=== PATIENT | female | born 1965 | race Hispanic/Latino ===

== ENCOUNTER 2020-10-02 08:53 | Emergency (ER) | payer MEDICARE ==
[2020-10-02] MEDS ORDERED: ONDANSETRON 4 MG/2 ML INJ IV ONE (10:42)
[2020-10-02] MEDS ORDERED: SODIUM CHLORIDE 0.9% 1000 ML 1,000 ML IV ONE (10:42)
[2020-10-02] MEDS ORDERED: MORPHINE 4 MG/1 ML INJ IV ONE (10:42)
[2020-10-02 10:58] LABS: Bacteria,Urine 1+ /HPF (Negative); Bilirubin,Urine NEG (Negative); Blood,Urine LG (Negative); Color,Urine Yellow (Yellow); Mucus,Urine FEW /HPF; Urobilinogen,Urine < 2.0 mg/dL (<2.0)
[2020-10-02 10:59] LABS: RBC,Urine > 182.0 /HPF (0.0-6.0)
[2020-10-02 11:23] LABS: Basophils % (Auto) 0.6 % (0.0-1.8); Eosinophils # (Auto) 0.2 K/mm3 (0.0-0.4); Eosinophils % (Auto) 2.9 % (0.0-4.3); Hematocrit 33.4 % (30.3-42.9); Hemoglobin 11.7 gm/dl (10.1-14.3); Lymphocytes # (Auto) 1.7 K/mm3 (1.2-5.4); Lymphocytes % (Auto) 21.5 % (13.4-35.0); Mean Corpuscular HGB Conc 35 % (30-34); Mean Corpuscular Volume 88 fl (79-97); Monocytes # (Auto) 0.6 K/mm3 (0.0-0.8); Monocytes % (Auto) 7.7 % (0.0-7.3); Platelet Count 338 K/mm3 (140-440); Red Blood Count 3.81 M/mm3 (3.65-5.03); Red Cell Distribution Width 14.9 % (13.2-15.2)
--- NOTE | 2020-10-02 11:30 | Emergency Department Report ---
ED General Adult HPI - General Chief complaint: Urogenital-Female Stated complaint: BLOON IN URINE Time Seen by Provider: 10/02/20 10:18 Source: patient Mode of arrival: Wheelchair Limitations: No Limitations - History of Present Illness Initial comments: Patient is a 55-year-old female presents emergency room with complaints of back pain and lower abdominal pain that began this morning. She states that she also has hematuria. Patient states that she has a history of nephrolithiasis and had a ureteral stent placed on September 02 at [facility]. She states that she is also been having associated nausea. She denies any fever, vomiting, diarrhea, CP, SOB. She has a past medical history of CAD, A. fib, COPD. She states that she is on Plavix. She has multiple medication allergies. Severity scale (0 -10): 10 - Related Data Home Medications Medication Instructions Recorded Confirmed Last Taken Albuterol Sulfate [Proventil Hfa] 1 - 2 puff INHALATION Q6H PRN 05/08/20 Unknown AtorvaSTATin [Lipitor] 40 mg PO DAILY 05/08/20 05/08/20 Unknown Clopidogrel [Plavix] 75 mg PO DAILY 05/08/20 05/08/20 Unknown DULoxetine [Cymbalta] 60 mg PO DAILY 05/08/20 05/08/20 Unknown Furosemide [Lasix TAB] 20 mg pe PO DAILY 05/08/20 05/08/20 Unknown ISOSORBIDE MONOnitrate [Imdur ER] 30 mg PO DAILY 05/08/20 05/08/20 Unknown LORazepam [Lorazepam] 0.5 mg PO BID PRN 05/08/20 05/08/20 Unknown Montelukast Sodium 10 mg PO DAILY 05/08/20 05/08/20 Unknown Omeprazole 20 mg PO DAILY 05/08/20 05/08/20 Unknown amLODIPine 5 mg PO DAILY 05/08/20 05/08/20 Unknown lisinopriL [Zestril TAB] 20 mg PO DAILY 05/08/20 05/08/20 Unknown metFORMIN [Glucophage] 500 mg PO BID 05/08/20 05/08/20 Unknown traZODone [Desyrel] 100 mg PO QHS 05/08/20 05/08/20 Unknown Previous Rx's Medication Instructions Recorded Last Taken Type Melatonin [Melatonin 5MG TAB] 5 mg PO QHS PRN #30 tablet 05/12/20 Unknown Rx Nicotine [Habitrol] 14 mg TD QDAY #30 patch 05/12/20 Unknown Rx haloperidoL [Haldol] 2 mg PO BID #60 tablet 05/12/20 Unknown Rx Ciprofloxacin HCl [Ciprofloxacin 500 mg PO BID 7 Days #14 tab 10/02/20 Unknown Rx TAB] Docusate Sodium [Colace] 100 mg PO BID PRN #14 capsule 10/02/20 Unknown Rx Ketorolac [Toradol] 10 mg PO Q6H PRN #10 tablet 10/02/20 Unknown Rx Polyethylene Glycol 3350 [Miralax] 7 gm PO DAILY #1 powder 10/02/20 Unknown Rx Promethazine [Phenergan] 25 mg PO Q8HR PRN #7 tab 10/02/20 Unknown Rx Allergies Allergy/AdvReac Type Severity Reaction Status Date / Time ampicillin Allergy Itching Verified 05/08/20 02:47 azithromycin Allergy Nausea Verified 05/08/20 02:47 codeine Allergy Itching Verified 05/08/20 02:47 erythromycin base Allergy Vomiting Verified 05/08/20 02:47 latex Allergy Rash Verified 05/08/20 02:47 Penicillins Allergy Vomiting Verified 05/08/20 02:47 hydrocodone AdvReac Unknown Verified 05/08/20 02:47 tramadol AdvReac Unknown Verified 05/08/20 02:47 ED Review of Systems ROS: Stated complaint: BLOON IN URINE Other details as noted in HPI Comment: All other systems reviewed and negative ED Past Medical Hx - Past Medical History Previous Medical History?: Yes Hx Congestive Heart Failure: Yes Hx Diabetes: Yes Hx Arthritis: Yes Hx Seizures: Yes (8 mths) Hx Asthma: No Hx COPD: Yes - Social History Smoking Status: Current Every Day Smoker Substance Use Type: Alcohol - Medications Home Medications: Home Medications Medication Instructions Recorded Confirmed Last Taken Type Albuterol Sulfate [Proventil Hfa] 1 - 2 puff INHALATION Q6H PRN 05/08/20 05/08/20 Unknown History AtorvaSTATin [Lipitor] 40 mg PO DAILY 05/08/20 05/08/20 Unknown History Clopidogrel [Plavix] 75 mg PO DAILY 05/08/20 05/08/20 Unknown History DULoxetine [Cymbalta] 60 mg PO DAILY 05/08/20 05/08/20 Unknown History Furosemide [Lasix TAB] 20 mg pe PO DAILY 05/08/20 05/08/20 Unknown History ISOSORBIDE MONOnitrate [Imdur ER] 30 mg PO DAILY 05/08/20 05/08/20 Unknown History LORazepam [Lorazepam] 0.5 mg PO BID PRN 05/08/20 05/08/20 Unknown History Montelukast Sodium 10 mg PO DAILY 05/08/20 05/08/20 Unknown History Omeprazole 20 mg PO DAILY 05/08/20 05/08/20 Unknown History amLODIPine 5 mg PO DAILY 05/08/20 05/08/20 Unknown History lisinopriL [Zestril TAB] 20 mg PO DAILY 05/08/20 05/08/20 Unknown History metFORMIN [Glucophage] 500 mg PO BID 05/08/20 05/08/20 Unknown History traZODone [Desyrel] 100 mg PO QHS 05/08/20 05/08/20 Unknown History Melatonin [Melatonin 5MG TAB] 5 mg PO QHS PRN #30 tablet 05/12/20 Unknown Rx Nicotine [Habitrol] 14 mg TD QDAY #30 patch 05/12/20 Unknown Rx haloperidoL [Haldol] 2 mg PO BID #60 tablet 05/12/20 Unknown Rx Ciprofloxacin HCl [Ciprofloxacin 500 mg PO BID 7 Days #14 tab 10/02/20 Unknown Rx TAB] Docusate Sodium [Colace] 100 mg PO BID PRN #14 capsule 10/02/20 Unknown Rx Ketorolac [Toradol] 10 mg PO Q6H PRN #10 tablet 10/02/20 Unknown Rx Polyethylene Glycol 3350 [Miralax] 7 gm PO DAILY #1 powder 10/02/20 Unknown Rx Promethazine [Phenergan] 25 mg PO Q8HR PRN #7 tab 10/02/20 Unknown Rx ED Physical Exam - General Limitations: No Limitations General appearance: alert, in no apparent distress - Head Head exam: Present: atraumatic, normocephalic - Eye Eye exam: Present: normal appearance - ENT ENT exam: Present: mucous membranes moist - Respiratory Respiratory exam: Present: normal lung sounds bilaterally. Absent: respiratory distress, wheezes, rales, rhonchi, stridor, chest wall tenderness, accessory muscle use, decreased breath sounds, prolonged expiratory - Cardiovascular Cardiovascular Exam: Present: regular rate, normal rhythm, normal heart sounds. Absent: systolic murmur, diastolic murmur, rubs, gallop - GI/Abdominal GI/Abdominal exam: Present: soft, normal bowel sounds. Absent: distended, tenderness, guarding, rebound, rigid - Back Exam Back exam: Present: CVA tenderness (R), CVA tenderness (L) - Neurological Exam Neurological exam: Present: alert, oriented X3 - Psychiatric Psychiatric exam: Present: normal affect, normal mood - Skin Skin exam: Present: warm, dry, intact ED Course Vital Signs 10/02/20 10/02/20 10/02/20 08:56 11:36 13:18 Temperature 98.2 F 97.9 F Pulse Rate 94 H 78 Respiratory 18 18 18 Rate Blood Pressure 140/62 148/80 [Right] O2 Sat by Pulse 96 100 Oximetry ED Medical Decision Making - Lab Data Result diagrams: 10/02/20 11:04 10/02/20 11:04 Lab Results 10/02/20 10/02/20 10/02/20 Range/Units 11:04 11:04 Unknown WBC 8.0 (4.5-11.0) K/mm3 RBC 3.81 (3.65-5.03) M/mm3 Hgb 11.7 (10.1-14.3) gm/dl Hct 33.4 (30.3-42.9) % MCV 88 (79-97) fl MCH 31 (28-32) pg MCHC 35 H (30-34) % RDW 14.9 (13.2-15.2) % Plt Count 338 (140-440) K/mm3 Lymph % (Auto) 21.5 (13.4-35.0) % [place] % (Auto) 7.7 H (0.0-7.3) % Eos % (Auto) 2.9 (0.0-4.3) % Baso % (Auto) 0.6 (0.0-1.8) % Lymph # (Auto) 1.7 (1.2-5.4) K/mm3 Nance # (Auto) 0.6 (0.0-0.8) K/mm3 Eos # (Auto) 0.2 (0.0-0.4) K/mm3 Baso # (Auto) 0.0 (0.0-0.1) K/mm3 Seg Neutrophils % 67.3 (40.0-70.0) % Seg Neutrophils # 5.4 (1.8-7.7) K/mm3 Sodium 140 (137-145) mmol/L Potassium 4.2 (3.6-5.0) mmol/L Chloride 104.8 (98-107) mmol/L Carbon Dioxide 27 (22-30) mmol/L Anion Gap 12 mmol/L BUN 14 (7-17) mg/dL Creatinine 0.8 (0.6-1.2) mg/dL Estimated GFR > 60 ml/min BUN/Creatinine Ratio 18 % Glucose 111 H (65-100) mg/dL Calcium 9.1 (8.4-10.2) mg/dL Total Bilirubin 0.30 (0.1-1.2) mg/dL AST 17 (5-40) units/L ALT 19 (7-56) units/L Alkaline Phosphatase 29 L (35-129) units/L Total Protein 6.5 (6.3-8.2) g/dL Albumin 3.9 (3.9-5) g/dL Albumin/Globulin Ratio 1.5 % Lipase 35 (13-60) units/L Urine Color Yellow (Yellow) Urine Turbidity Slightly-cloudy (Clear) Urine pH 5.0 (5.0-7.0) Ur Specific [place] 1.015 (1.003-1.030) Urine Protein 100 mg/dl (Negative) mg/dL Urine Glucose (UA) Neg (Negative) mg/dL Urine Ketones Neg (Negative) mg/dL Urine Blood Lg (Negative) Urine Nitrite Neg (Negative) Urine Bilirubin Neg (Negative) Urine Urobilinogen < 2.0 (<2.0) mg/dL Ur Leukocyte Esterase Tr (Negative) Urine WBC (Auto) 10.0 H (0.0-6.0) /HPF Urine RBC (Auto) > 182.0 (0.0-6.0) /HPF U Epithel Cells (Auto) < 1.0 (0-13.0) /HPF Urine Bacteria (Auto) 1+ (Negative) /HPF Urine Mucus Few /HPF - Radiology Data Radiology results: report reviewed Reporting MD: Migel Mendez Dictation Time: October 02, 2020 10:07 Cost Control Specialist: Not available Student Development Dean Date: CT abdomen pelvis wo con INDICATION: flank pain, hematuria, ureteral stent 09/02/2020. TECHNIQUE: All CT scans at this location are performed using CT dose reduction for ALARA by means of automated exposure control. COMPARISON: None available. FINDINGS: Lung bases are clear of acute disease. Endovascular graft in the distal thoracic aorta. Cholecystectomy. Small hiatal hernia. Liver, spleen and pancreas are negative on this noncontrast exam. Right kidney and both adrenals are negative. Left ureteral stent is in position, with the pigtail in the renal pelvis. No hydronephrosis. Abdominal aorta is normal in size. There are several small left para-aortic nodes, measuring up to 7 mm in size. Pelvis Distal end of the left ureteral stent is normally positioned in the urinary bladder. Bladder and distal right ureter are unremarkable. Uterus appears unremarkable. Normal appendix. Sigmoid diverticulosis but no free fluid or inflammation. No significant skeletal lesions. IMPRESSION: 1. Left ureteral stent in position, with no hydronephrosis. 2. Very small left para-aortic nodes, of questionable significance. Signer Name: Migel Mendez MD Signed: 10/02/2020 10:07 AM Workstation Name: [email or web address] [id number] - Medical Decision Making Patient is a 55-year-old female presents emergency room with complaints of back pain and lower abdominal pain that began this morning. She states that she also has hematuria. Patient states that she has a history of nephrolithiasis and had a ureteral stent placed on September 02 at [facility]. She states that she is also been having associated nausea. She denies any fever, vomiting, diarrhea, CP, SOB. She has a past medical history of CAD, A. fib, COPD. She states that she is on Plavix. She has multiple medication allergies. VSS. Patient has bilateral CVA tenderness, no abdominal tenderness on exam, no guarding, no rebound, no rigidity, no peritoneal signs, normal bowel sounds. Labs are normal. UA shows evidence of red blood cells, there is a small amount of white blood cells and trace leukocyte esterase, will cover patient for UTI. CT abd pelvis without contrast: 1. Left ureteral stent in position, with no hydronephrosis. 2. Very small left para-aortic nodes, of questionable significance. Discussed all findings with patient patient given her CT report. Discussed the importance of urology follow-up with patient. Patient states that she is also been having some constipation but has no vomiting and is still passing gas. Patient given prescription for MiraLAX, Colace, ciprofloxacin, Phenergan, Toradol. advised pt Please take medication as prescribed. Increase your water intake. Follow-up with your primary care doctor. Follow-up with urologist. Return to emergency room for any new or worsening symptoms. Critical care attestation.: If time is entered above; I have spent that time in minutes in the direct care of this critically ill patient, excluding procedure time. ED Disposition Clinical Impression: S/P ureteral stent placement Back pain Qualifiers: Back pain location: low back pain Chronicity: acute Back pain laterality: bilateral Sciatica presence: without sciatica Qualified Code(s): M54.5 - Low back pain Hematuria Qualifiers: Hematuria type: unspecified type Qualified Code(s): R31.9 - Hematuria, unspecified UTI (urinary tract infection) Qualifiers: Urinary tract infection type: acute cystitis Hematuria presence: with hematuria Qualified Code(s): N30.01 - Acute cystitis with hematuria Disposition: TO HOME OR SELFCARE Is pt being admited?: No Does the pt Need Aspirin: No Condition: Stable Instructions: Urinary Tract Infection, Adult, Azcg-[id number], Hematuria, Adult Additional Instructions: Please take medication as prescribed. Increase your water intake. Follow-up with your primary care doctor. Follow-up with urologist. Return to emergency room for any new or worsening symptoms. Prescriptions: Ciprofloxacin HCl [Ciprofloxacin TAB] 500 mg PO BID 7 Days #14 tab Docusate Sodium [Colace] 100 mg PO BID PRN #14 capsule PRN Reason: constipation Polyethylene Glycol 3350 [Miralax] 7 gm PO DAILY #1 powder Promethazine [Phenergan] 25 mg PO Q8HR PRN #7 tab PRN Reason: Nausea Ketorolac [Toradol] 10 mg PO Q6H PRN #10 tablet PRN Reason: Pain Referrals: PRIMARY CARE,MD [Primary Care Provider] - 2-3 Days your, urologist [Other] - 2-3 Days Time of Disposition: 12:44 Print Language: BENGALI
[2020-10-02] MEDS ORDERED: diphenhydrAMINE 50 MG/ML VIAL IV ONE (11:35)
[2020-10-02 11:36] LABS: Alanine Aminotransferase 19 units/L (7-56); Albumin 3.9 g/dL (3.9-5); BUN/Creatinine Ratio 18; Blood Urea Nitrogen 14 mg/dL (7-17); Calcium 9.1 mg/dL (8.4-10.2); Hemolysis Index 4
[2020-10-02 13:19] VITALS: BP 148/80
--- NOTE | 2020-10-09 15:02 | Cat Scan Report ---
CT abdomen pelvis wo con INDICATION: flank pain, hematuria, ureteral stent 09/02/2020. TECHNIQUE: All CT scans at this location are performed using CT dose reduction for ALARA by means of automated e xposure control. COMPARISON: None available. FINDINGS: Lung bases are clear of acute disease. Endovascular graft in the distal thoracic aorta. Cholecystectomy. Small hiatal hernia. Liver, spleen and pancreas are negative on this noncontrast exa m. Right kidney and both adrenals are negative. Left ureteral stent is in position, with the pigtail in the renal pelvis. No hydronephrosis. Abdominal aorta is normal in size. There are several small left para-aortic nodes, measuring up to 7 mm in size. Pelvis Distal end of the left ureteral stent is normally positioned in the urinary bladder. Bladder and dist al right ureter are unremarkable. Uterus appears unremarkable. Normal appendix. Sigmoid diverticulosi s but no free fluid or inflammation. No significant skeletal lesions. IMPRESSION: 1. Left ureteral stent in position, with no hydronephrosis. 2. Very small left para-aortic nodes, of questionable significance. Signer Name: Migel Mendez MD Signed: 10/02/2020 11:07 AM Workstation Name: [id number]
== END 2020-10-02 13:20 | disposition home or self-care (01) ==
LOC: ED 08:53
DX: N39.0 Urinary tract infection, site not specified (principal); R31.9 Hematuria, unspecified; M54.6 Pain in thoracic spine; I50.9 Heart failure, unspecified; E11.9 Type 2 diabetes mellitus without complications; M19.91 Primary osteoarthritis, unspecified site; R56.9 Unspecified convulsions; J44.9 Chronic obstructive pulmonary disease, unspecified; F17.200 Nicotine dependence, unspecified, uncomplicated; Z79.84 Long term (current) use of oral hypoglycemic drugs; Z79.899 Other long term (current) drug therapy; Z88.1 Allergy status to other antibiotic agents; Z88.8 Allergy status to other drugs, medicaments and biological substances; Z91.040 Latex allergy status; Z98.890 Other specified postprocedural states
CPT/HCPCS: 36415; 74176; 80053; 81001; 83690; 85025; 87086; 96361; 96374; 96375; 99284; J1200; J2270; J2405; J7030

== ENCOUNTER 2020-10-03 19:29 | Emergency (ER) | payer MEDICARE ==
[2020-10-03 20:35] LABS: Bilirubin,Urine NEG (Negative); Blood,Urine LG (Negative); Color,Urine Yellow (Yellow); Urobilinogen,Urine < 2.0 mg/dL (<2.0)
[2020-10-03 20:37] LABS: RBC,Urine > 182.0 /HPF (0.0-6.0)
[2020-10-03 21:19] LABS: Hematocrit 34.7 % (30.3-42.9); Hemoglobin 11.6 gm/dl (10.1-14.3); Mean Corpuscular HGB Conc 33 % (30-34); Mean Corpuscular Volume 89 fl (79-97); Platelet Count 350 K/mm3 (140-440); Red Blood Count 3.89 M/mm3 (3.65-5.03); Red Cell Distribution Width 14.9 % (13.2-15.2)
[2020-10-03 21:20] LABS: Basophils % (Auto) 0.7 % (0.0-1.8); Eosinophils # (Auto) 0.2 K/mm3 (0.0-0.4); Eosinophils % (Auto) 2.4 % (0.0-4.3); Lymphocytes # (Auto) 1.7 K/mm3 (1.2-5.4); Lymphocytes % (Auto) 18.5 % (13.4-35.0); Monocytes # (Auto) 0.7 K/mm3 (0.0-0.8)
[2020-10-03 21:21] LABS: Basophils # (Auto) 0.1 K/mm3 (0.0-0.1)
[2020-10-03 21:23] LABS: Alanine Aminotransferase 20 units/L (7-56); Albumin 4.2 g/dL (3.9-5); BUN/Creatinine Ratio 19; Blood Urea Nitrogen 17 mg/dL (7-17); Calcium 9.4 mg/dL (8.4-10.2); Hemolysis Index 69
[2020-10-03] MEDS ORDERED: TAMSULOSIN 0.4 MG CAP PO ONE (21:43)
[2020-10-03] MEDS ORDERED: KETOROLAC 30 MG/1 ML INJ IV ONE (21:43)
[2020-10-03] MEDS ORDERED: METOCLOPRAMIDE 10 MG/2 ML INJ IV ONE ×2 (21:43→23:33)
[2020-10-03] MEDS ORDERED: SODIUM CHLORIDE 0.9% 1000 ML 1,000 ML IV ONE (21:43)
[2020-10-03] MEDS ORDERED: diphenhydrAMINE 50 MG/ML VIAL IV ONE (21:43)
--- NOTE | 2020-10-03 22:59 | Cat Scan Report ---
CT ABDOMEN AND PELVIS WITHOUT CONTRAST INDICATION / CLINICAL INFORMATION: RENAL STONE PROTOCOL!!! Bilateral flank pain. TECHNIQUE: Axial CT images were obtained through the abdomen and pelvis without IV contrast. All CT scans at [facility] location are performed using CT dose reduction for ALARA by means of automated exposure control. COMPARISON: CT abdomen pelvis 10/02/2020 FINDINGS: LOWER CHEST: Multivessel coronary artery atherosclerotic calcification. Partially visualized in the v ascular graft repair of the thoracic aorta. HEPATOBILIARY: No significant abnormality. PANCREAS: No significant abnormality. SPLEEN: No significant abnormality. ADRENALS: No significant abnormality. GENITOURINARY: Double-J ureteral stent in place on the left with stable appearance. No nephrolithiasi s. No evidence of obstructive uropathy. Bladder demonstrates no significant abnormality. GASTROINTESTINAL/MESENTERY: Diverticulosis coli without evidence of diverticulitis. No evidence of ac [place] appendicitis. No bowel obstruction or inflammation. No free air or significant free fluid. RETROPERITONEUM: Stable normal sized retroperitoneal lymph nodes. No evidence of significant adenopat hy. REPRODUCTIVE ORGANS: No significant abnormality. VASCULAR: Moderate atherosclerotic calcification without acute abnormality. SKELETAL SYSTEM: No significant abnormality. ADDITIONAL FINDINGS: No significant abnormality. IMPRESSION: 1. Stable appearance of the left-sided double-J ureteral stent without evidence of obstructive uropat hy. No nephrolithiasis in either kidney. 2. Additional stable findings as above. Signer Name: Anrdew Bazan MD Signed: 10/03/2020 10:54 PM Workstation Name: [id number]
[2020-10-03] MEDS ORDERED: dexAMETHasone 20 MG/5 ML VIAL IV ONE (23:32)
[2020-10-03] MEDS ORDERED: oxyCODONE /ACETAMINOPHEN 5-325MG TAB PO ONE (23:32)
--- NOTE | 2020-10-03 23:52 | Emergency Department Report ---
ED General Adult HPI - General Chief complaint: Abdominal Pain Stated complaint: LEFT FLANK PAIN Source: patient, EMS Mode of arrival: Ambulatory Limitations: No Limitations - History of Present Illness Initial comments: Patient is a 55-year-old white female with a history of CHF, [id number] diabetes, chronic back pain, chronic recurrent kidney stones status post ureteral jet stents, chronic osteoarthritis, anxiety and depression, seizures and COPD who presents to the ED with complaint of acute onset persistent bilateral flank pain that radiates to the lower back and diffuse lower abdominal area with intermittent nausea and vomiting and hematuria for the last 1 month. Patient states that the pain has worsened in the last 3 days and suspected that the pain may be from her chronic recurrent kidney stones. Patient denies chest pain, shortness of breath, dizziness, fever, chills, cough, vaginal bleeding, vaginal discharge, dysuria, diarrhea, headache, numbness and tingling or weakness of lower extremities bilaterally. MD Complaint: Bilateral flank and low back pain; nausea and vomiting -: Gradual, month(s) (1) Location: back (lower back pain), abdomen (lower) Radiation: back (lower ), flank (bilaterally) Severity scale (0 -10): 7 Quality: aching, sharp Consistency: constant Improves with: none Worsens with: movement Associated Symptoms: denies other symptoms, nausea/vomiting. denies: confusion, cough, diaphoresis, fever/chills, headaches, loss of appetite, malaise, rash, seizure, shortness of breath, syncope, weakness Treatments Prior to Arrival: none - Related Data Home Medications Medication Instructions Recorded Confirmed Last Taken Albuterol Sulfate [Proventil Hfa] 1 - 2 puff INHALATION Q6H PRN 05/08/20 05/08/20 Unknown AtorvaSTATin [Lipitor] 40 mg PO DAILY 05/08/20 05/08/20 Unknown Clopidogrel [Plavix] 75 mg PO DAILY 05/08/20 05/08/20 Unknown DULoxetine [Cymbalta] 60 mg PO DAILY 05/08/20 05/08/20 Unknown Furosemide [Lasix TAB] 20 mg pe PO DAILY 05/08/20 05/08/20 Unknown ISOSORBIDE MONOnitrate [Imdur ER] 30 mg PO DAILY 05/08/20 05/08/20 Unknown LORazepam [Lorazepam] 0.5 mg PO BID PRN 05/08/20 05/08/20 Unknown Montelukast Sodium 10 mg PO DAILY 05/08/20 05/08/20 Unknown Omeprazole 20 mg PO DAILY 05/08/20 05/08/20 Unknown amLODIPine 5 mg PO DAILY 05/08/20 05/08/20 Unknown lisinopriL [Zestril TAB] 20 mg PO DAILY 05/08/20 05/08/20 Unknown metFORMIN [Glucophage] 500 mg PO BID 05/08/20 05/08/20 Unknown traZODone [Desyrel] 100 mg PO QHS 05/08/20 05/08/20 Unknown Previous Rx's Medication Instructions Recorded Last Taken Type Melatonin [Melatonin 5MG TAB] 5 mg PO QHS PRN #30 tablet 05/12/20 Unknown Rx Nicotine [Habitrol] 14 mg TD QDAY #30 patch 05/12/20 Unknown Rx haloperidoL [Haldol] 2 mg PO BID #60 tablet 05/12/20 Unknown Rx Ciprofloxacin HCl [Ciprofloxacin 500 mg PO BID 7 Days #14 tab 10/02/20 Unknown Rx TAB] Docusate Sodium [Colace] 100 mg PO BID PRN #14 capsule 10/02/20 Unknown Rx Ketorolac [Toradol] 10 mg PO Q6H PRN #10 tablet 10/02/20 Unknown Rx Polyethylene Glycol 3350 [Miralax] 7 gm PO DAILY #1 powder 10/02/20 Unknown Rx Promethazine [Phenergan] 25 mg PO Q8HR PRN #7 tab 10/02/20 Unknown Rx Acetaminophen [Tylenol] 500 mg PO Q6HR PRN #30 tablet 10/03/20 Unknown Rx Gabapentin 300 mg PO BID #20 cap 10/03/20 Unknown Rx Metoclopramide [Reglan] 10 mg PO TID PRN #15 tab 10/03/20 Unknown Rx methOCARBAMOL [Robaxin TAB] 750 mg PO BID PRN #24 tab 10/03/20 Unknown Rx Allergies Allergy/AdvReac Type Severity Reaction Status Date / Time ampicillin Allergy Itching Verified 05/08/20 02:47 azithromycin Allergy Nausea Verified 05/08/20 02:47 codeine Allergy Itching Verified 05/08/20 02:47 erythromycin base Allergy Vomiting Verified 05/08/20 02:47 latex Allergy Rash Verified 05/08/20 02:47 Penicillins Allergy Vomiting Verified 05/08/20 02:47 hydrocodone AdvReac Unknown Verified 05/08/20 02:47 tramadol AdvReac Unknown Verified 05/08/20 02:47 ED Review of Systems ROS: Stated complaint: LEFT FLANK PAIN Other details as noted in HPI Constitutional: denies: chills, fever Eyes: denies: eye pain, eye discharge, vision change ENT: denies: ear pain, throat pain Respiratory: denies: cough, shortness of breath, wheezing Cardiovascular: denies: chest pain, palpitations Endocrine: no symptoms reported Gastrointestinal: nausea, vomiting, other (Bilateral flank pain). denies: abdominal pain, diarrhea Genitourinary: denies: urgency, dysuria, discharge Musculoskeletal: back pain (lower back pain), arthralgia (lower back pain). denies: joint swelling Skin: denies: rash, lesions Neurological: denies: headache, weakness, paresthesias Psychiatric: denies: anxiety, depression Hematological/Lymphatic: denies: easy bleeding, easy bruising ED Past Medical Hx - Past Medical History Hx Congestive Heart Failure: Yes Hx Diabetes: Yes Hx Arthritis: Yes Hx Seizures: Yes (8 mths) Hx Asthma: No Hx COPD: Yes - Surgical History Additional Surgical History: renal stent 09/02/20 - Social History Smoking Status: Current Every Day Smoker Substance Use Type: Methamphetamines - Medications Home Medications: Home Medications Medication Instructions Recorded Confirmed Last Taken Type Albuterol Sulfate [Proventil Hfa] 1 - 2 puff INHALATION Q6H PRN 05/08/2005/08 Unknown History AtorvaSTATin [Lipitor] 40 mg PO DAILY 05/08/20 05/08/20 Unknown History Clopidogrel [Plavix] 75 mg PO DAILY 05/08/20 05/08/20 Unknown History DULoxetine [Cymbalta] 60 mg PO DAILY 05/08/20 05/08/20 Unknown History Furosemide [Lasix TAB] 20 mg pe PO DAILY 05/08/20 05/08/20 Unknown History ISOSORBIDE MONOnitrate [Imdur ER] 30 mg PO DAILY 05/08/20 05/08/20 Unknown History LORazepam [Lorazepam] 0.5 mg PO BID PRN 05/08/20 05/08/20 Unknown History Montelukast Sodium 10 mg PO DAILY 05/08/20 05/08/20 Unknown History Omeprazole 20 mg PO DAILY 05/08/20 05/08/20 Unknown History amLODIPine 5 mg PO DAILY 05/08/20 05/08/20 Unknown History lisinopriL [Zestril TAB] 20 mg PO DAILY 05/08/20 05/08/20 Unknown History metFORMIN [Glucophage] 500 mg PO BID 05/08/20 05/08/20 Unknown History traZODone [Desyrel] 100 mg PO QHS 05/08/20 05/08/20 Unknown History Melatonin [Melatonin 5MG TAB] 5 mg PO QHS PRN #30 tablet 05/12/20 Unknown Rx Nicotine [Habitrol] 14 mg TD QDAY #30 patch 05/12/20 Unknown Rx haloperidoL [Haldol] 2 mg PO BID #60 tablet 05/12/20 Unknown Rx Ciprofloxacin HCl [Ciprofloxacin 500 mg PO BID 7 Days #14 tab 10/02/20 Unknown Rx TAB] Docusate Sodium [Colace] 100 mg PO BID PRN #14 capsule 10/02/20 Unknown Rx Ketorolac [Toradol] 10 mg PO Q6H PRN #10 tablet 10/02/20 Unknown Rx Polyethylene Glycol 3350 [Miralax] 7 gm PO DAILY #1 powder 10/02/20 Unknown Rx Promethazine [Phenergan] 25 mg PO Q8HR PRN #7 tab 10/02/20 Unknown Rx Acetaminophen [Tylenol] 500 mg PO Q6HR PRN #30 tablet 10/03/20 Unknown Rx Gabapentin 300 mg PO BID #20 cap 10/03/20 Unknown Rx Metoclopramide [Reglan] 10 mg PO TID PRN #15 tab 10/03/20 Unknown Rx methOCARBAMOL [Robaxin TAB] 750 mg PO BID PRN #24 tab 10/03/20 Unknown Rx ED Physical Exam - General Limitations: No Limitations General appearance: alert, in no apparent distress - Head Head exam: Present: atraumatic, normocephalic, normal inspection - Eye Eye exam: Present: normal appearance, PERRL, EOMI Pupils: Present: normal accommodation - ENT ENT exam: Present: normal exam, normal orophraynx, mucous membranes moist, TM's normal bilaterally, normal external ear exam - Neck Neck exam: Present: normal inspection, full ROM - Respiratory Respiratory exam: Present: normal lung sounds bilaterally. Absent: respiratory distress, wheezes, rales, rhonchi, chest wall tenderness, accessory muscle use, decreased breath sounds, prolonged expiratory - Cardiovascular Cardiovascular Exam: Present: regular rate, normal rhythm, normal heart sounds. Absent: systolic murmur, diastolic murmur, rubs, gallop - GI/Abdominal GI/Abdominal exam: Present: soft, tenderness (Palpable bilateral flank tende rness), normal bowel sounds. Absent: guarding, rebound, rigid, hyperactive bowel sounds, hypoactive bowel sounds, organomegaly, mass, pulsatile mass, hernia - Extremities Exam Extremities exam: Present: normal inspection, full ROM, normal capillary refill - Back Exam Back exam: Present: normal inspection, full ROM, tenderness (Palpable lumbosacral paraspinal musculoskeletal tenderness), muscle spasm, paraspinal tenderness - Neurological Exam Neurological exam: Present: alert, oriented X3, CN II-XII intact, normal gait, reflexes normal - Psychiatric Psychiatric exam: Present: normal affect, normal mood, anxious - Skin Skin exam: Present: warm, dry, intact, normal color. Absent: rash ED Course Vital Signs 10/03/20 20:14 Temperature 99.0 F Pulse Rate 79 Respiratory 18 Rate O2 Sat by Pulse 98 Oximetry ED Medical Decision Making - Lab Data Result diagrams: 10/03/20 20:45 10/03/20 20:45 - Radiology Data Radiology results: report reviewed, [place] [address] Cat Scan Report Signed Patient: TITO SARKAR MR#: [id number] [birth year] : 1965 Acct:[id number] Age/Sex: 55 / F ADM Date: 10/03/20 Loc: ED Attending Dr: Ordering Physician: DIOGO MCKEON Date of Service: 10/03/20 Procedure(s): CT abdomen pelvis wo con Accession Number(s): [id number] cc: DIOGO MCKEON CT ABDOMEN AND PELVIS WITHOUT CONTRAST INDICATION / CLINICAL INFORMATION: RENAL STONE PROTOCOL!!! Bilateral flank pain. TECHNIQUE: Axial CT images were obtained through the abdomen and pelvis without IV contrast. All CT scans at this location are performed using CT dose reduction for ALARA by means of automated exposure control. COMPARISON: CT abdomen pelvis 10/02/2020 FINDINGS: LOWER CHEST: Multivessel coronary artery atherosclerotic calcification. Partially visualized in the vascular graft repair of the thoracic aorta. HEPATOBILIARY: No significant abnormality. PANCREAS: No significant abnormality. SPLEEN: No significant abnormality. ADRENALS: No significant abnormality. GENITOURINARY: Double-J ureteral stent in place on the left with stable appearance. No nephrolithiasis. No evidence of obstructive uropathy. Bladder demonstrates no significant abnormality. GASTROINTESTINAL/MESENTERY: Diverticulosis coli without evidence of diverticulitis. No evidence of acute appendicitis. No bowel obstruction or inflammation. No free air or significant free fluid. RETROPERITONEUM: Stable normal sized retroperitoneal lymph nodes. No evidence of significant adenopathy. REPRODUCTIVE ORGANS: No significant abnormality. VASCULAR: Moderate atherosclerotic calcification without acute abnormality. SKELETAL SYSTEM: No significant abnormality. ADDITIONAL FINDINGS: No significant abnormality. IMPRESSION: 1. Stable appearance of the left-sided double-J ureteral stent without evidence of obstructive uropathy. No nephrolithiasis in either kidney. 2. Additional stable findings as above. Signer Name: Andrew Bazan MD Signed: 10/03/2020 10:54 PM Workstation Name: [id number] Transcribed By: RH Dictated By: ANDREW BAZAN III Electronically Authenticated By: ANDREW BAZAN III Signed Date/Time: 10/03/202253 DD/ 47 TD/TT: - Medical Decision Making This is a 55-year-old white female with a history of CHF, [id number] diabetes, chronic back pain, chronic recurrent kidney stones status post uretera l jet stents, chronic osteoarthritis, anxiety and depression, seizures and COPD who presents to the ED with complaint of acute onset persistent bilateral flank pain that radiates to the lower back and diffuse lower abdominal area with intermittent nausea and vomiting and hematuria for the last 1 month. Patient states that the pain has worsened in the last 3 days and suspected that the pain may be from her chronic recurrent kidney stones. In the ED, patient is alert and oriented x3 and is not in distress with stable vital signs. Lab test results were reviewed and are all nonactionable except for gross hematuria in urinalysis. Abdomen pelvis CT scan without contrast showed stable appearance of the left-sided double-J ureteral stent without evidence of obstructive uropathy with no nephrolithiasis in either kidney. Patient was treated for pain in the ED and also received normal saline 1 L IV bolus as well as antiemetics. On reevaluation, patient's pain is well controlled medications. Patient was discharged home on medications and advised to follow-up with her primary care physician in 7 to 10 days for reevaluation. Patient advised return to the ED immediately if symptoms get worse. - Differential Diagnosis Kidney stones; UTI; Muscle spasm; Muscle strain Critical care attestation.: If time is entered above; I have spent that time in minutes in the direct care of this critically ill patient, excluding procedure time. ED Disposition Clinical Impression: Spasm of muscle of lower back, Bilateral flank pain, Nausea and vomiting in adult Chronic lower back pain Qualifiers: Back pain laterality: bilateral Sciatica presence: without sciatica Qualified Code(s): M54.5 - Low back pain; G89.29 - Other chronic pain Hematuria Qualifiers: Hematuria type: gross Qualified Code(s): R31.0 - Gross hematuria Disposition: TO HOME OR SELFCARE Is pt being admited?: No Does the pt Need Aspirin: No Condition: Stable Instructions: Abdominal Pain (ED), Muscle Cramps and Spasms, [id number], Abdominal Pain, Adult, [id number], Chronic Back Pain, [id number], Nausea and Vomiting, Adult, [id number] Additional Instructions: All lab test results are unremarkable. Abdomen pelvis CT scan without contrast showed no acute abnormalities but stable appearance of the left-sided double-J ureteral stent without evidence of obstructive uropathy without any kidney stones in either kidney. Therefore take medications with food, drink plenty of fluids and follow-up with your primary care physician in 7 to 10 days for reevaluation. Return to the ED immediately if symptoms get worse. Prescriptions: Acetaminophen [Tylenol] 500 mg PO Q6HR PRN #30 tablet PRN Reason: Pain , Severe (7-10) Gabapentin 300 mg PO BID #20 cap Metoclopramide [Reglan] 10 mg PO TID PRN #15 tab PRN Reason: Nausea methOCARBAMOL [Robaxin TAB] 750 mg PO BID PRN #24 tab PRN Reason: Muscle Spasm Referrals: [facility] [Provider Group] - 3-5 Days Time of Disposition: 23:54 Print Language: SAMMARINESE
== END 2020-10-04 00:33 | disposition home or self-care (01) ==
LOC: ED 19:29
DX: M62.830 Muscle spasm of back (principal); R11.2 Nausea with vomiting, unspecified; R31.0 Gross hematuria; E11.9 Type 2 diabetes mellitus without complications; M13.88 Other specified arthritis, other site; J44.9 Chronic obstructive pulmonary disease, unspecified; I50.9 Heart failure, unspecified; F17.200 Nicotine dependence, unspecified, uncomplicated; F15.10 Other stimulant abuse, uncomplicated; Z91.040 Latex allergy status; Z88.0 Allergy status to penicillin; Z88.1 Allergy status to other antibiotic agents
CPT/HCPCS: 36415; 74176; 80053; 81001; 85025; 87086; 96361; 96374; 96375; 99284; J1100; J1200; J1885; J2765; J7030

== ENCOUNTER 2020-10-07 19:43 | Emergency (ER) | payer MEDICARE ==
[2020-10-07 20:29] LABS: Bilirubin,Urine NEG (Negative); Blood,Urine LG (Negative); Color,Urine Yellow (Yellow); Mucus,Urine FEW /HPF; Urobilinogen,Urine < 2.0 mg/dL (<2.0)
[2020-10-07 20:31] LABS: RBC,Urine > 182.0 /HPF (0.0-6.0)
[2020-10-07 20:52] LABS: Basophils # (Auto) 0.1 K/mm3 (0.0-0.1); Basophils % (Auto) 0.7 % (0.0-1.8); Eosinophils # (Auto) 0.3 K/mm3 (0.0-0.4); Eosinophils % (Auto) 2.6 % (0.0-4.3); Hematocrit 34.1 % (30.3-42.9); Lymphocytes % (Auto) 17.1 % (13.4-35.0); Mean Corpuscular HGB Conc 35 % (30-34); Mean Corpuscular Volume 87 fl (79-97); Monocytes # (Auto) 0.9 K/mm3 (0.0-0.8); Monocytes % (Auto) 7.7 % (0.0-7.3); Platelet Count 370 K/mm3 (140-440); Red Cell Distribution Width 14.6 % (13.2-15.2)
[2020-10-07 21:14] LABS: Alanine Aminotransferase 28 units/L (7-56); BUN/Creatinine Ratio 20; Blood Urea Nitrogen 16 mg/dL (7-17); Calcium 9.4 mg/dL (8.4-10.2); Hemolysis Index 57
--- NOTE | 2020-10-08 11:22 | Emergency Department Report ---
ED Female HPI - General Chief complaint: Abdominal Pain Stated complaint: PAINFUL URINATION/ABD PAIN Source: patient Mode of arrival: Ambulatory Limitations: No Limitations - History of Present Illness Initial comments: 55-year-old female presents to the emergency room for lower back pain and gross hematuria. Patient states that she recently had stents placed in her left kidney secondary to having kidney stones. Patient states this was done August 2020. MD Complaint: dysuria - Related Data Home Medications Medication Instructions Recorded Confirmed Last Taken Albuterol Sulfate [Proventil Hfa] 1 - 2 puff INHALATION Q6H PRN 05/08/20 05/08/20 Unknown AtorvaSTATin [Lipitor] 40 mg PO DAILY 05/08/20 05/08/20 Unknown Clopidogrel [Plavix] 75 mg PO DAILY 05/08/20 05/08/20 Unknown DULoxetine [Cymbalta] 60 mg PO DAILY 05/08/20 05/08/20 Unknown Furosemide [Lasix TAB] 20 mg pe PO DAILY 05/08/20 05/08/20 Unknown ISOSORBIDE MONOnitrate [Imdur ER] 30 mg PO DAILY 05/08/20 05/08/20 Unknown LORazepam [Lorazepam] 0.5 mg PO BID PRN 05/08/20 05/08/20 Unknown Montelukast Sodium 10 mg PO DAILY 05/08/20 05/08/20 Unknown Omeprazole 20 mg PO DAILY 05/08/20 05/08/20 Unknown amLODIPine 5 mg PO DAILY 05/08/20 05/08/20 Unknown lisinopriL [Zestril TAB] 20 mg PO DAILY 05/08/20 05/08/20 Unknown metFORMIN [Glucophage] 500 mg PO BID 05/08/20 05/08/20 Unknown traZODone [Desyrel] 100 mg PO QHS 05/08/20 05/08/20 Unknown Previous Rx's Medication Instructions Recorded Last Taken Type Melatonin [Melatonin 5MG TAB] 5 mg PO QHS PRN #30 tablet 05/12/20 Unknown Rx Nicotine [Habitrol] 14 mg TD QDAY #30 patch 05/12/20 Unknown Rx haloperidoL [Haldol] 2 mg PO BID #60 tablet 05/12/20 Unknown Rx Ciprofloxacin HCl [Ciprofloxacin 500 mg PO BID 7 Days #14 tab 10/02/20 Unknown Rx TAB] Docusate Sodium [Colace] 100 mg PO BID PRN #14 capsule 10/02/20 Unknown Rx Ketorolac [Toradol] 10 mg PO Q6H PRN #10 tablet 10/02/20 Unknown Rx Polyethylene Glycol 3350 [Miralax] 7 gm PO DAILY #1 powder 10/02/20 Unknown Rx Promethazine [Phenergan] 25 mg PO Q8HR PRN #7 tab 10/02/20 Unknown Rx Acetaminophen [Tylenol] 500 mg PO Q6HR PRN #30 tablet 10/03/20 Unknown Rx Gabapentin 300 mg PO BID #20 cap 10/03/20 Unknown Rx Metoclopramide [Reglan] 10 mg PO TID PRN #15 tab 10/03/20 Unknown Rx methOCARBAMOL [Robaxin TAB] 750 mg PO BID PRN #24 tab 10/03/20 Unknown Rx Allergies Allergy/AdvReac Type Severity Reaction Status Date / Time ampicillin Allergy Itching Verified 05/08/20 02:47 azithromycin Allergy Nausea Verified 05/08/20 02:47 codeine Allergy Itching Verified 05/08/20 02:47 erythromycin base Allergy Vomiting Verified 05/08/20 02:47 latex Allergy Rash Verified 05/08/20 02:47 Penicillins Allergy Vomiting Verified 05/08/20 02:47 hydrocodone AdvReac Unknown Verified 05/08/20 02:47 tramadol AdvReac Unknown Verified 05/08/20 02:47 ED Review of Systems ROS: Stated complaint: PAINFUL URINATION/ABD PAIN Other details as noted in HPI ED Past Medical Hx - Past Medical History Previous Medical History?: Yes Hx Congestive Heart Failure: Yes Hx Diabetes: Yes Hx Arthritis: Yes Hx Seizures: Yes (8 mths) Hx Kidney Stones: Yes Hx Psychiatric Treatment: Yes (Substance abuse) Hx Asthma: No Hx COPD: Yes - Surgical History Past Surgical History?: Yes Hx Cholecystectomy: Yes Additional Surgical History: renal stent 09/02/20, Left knee - Social History Smoking Status: Current Every Day Smoker Substance Use Type: Alcohol, Other - Medications Home Medications: Home Medications Medication Instructions Recorded Confirmed Last Taken Type Albuterol Sulfate [Proventil Hfa] 1 - 2 puff INHALATION Q6H PRN 05/08/20 05/08/20 Unknown History AtorvaSTATin [Lipitor] 40 mg PO DAILY 05/08/20 05/08/20 Unknown History Clopidogrel [Plavix] 75 mg PO DAILY 05/08/20 05/08/20 Unknown History DULoxetine [Cymbalta] 60 mg PO DAILY 05/08/20 05/08/20 Unknown History Furosemide [Lasix TAB] 20 mg pe PO DAILY 05/08/20 05/08/20 Unknown History ISOSORBIDE MONOnitrate [Imdur ER] 30 mg PO DAILY 05/08/20 05/08/20 Unknown History LORazepam [Lorazepam] 0.5 mg PO BID PRN 05/08/20 05/08/20 Unknown History Montelukast Sodium 10 mg PO DAILY 05/08/20 05/08/20 Unknown History Omeprazole 20 mg PO DAILY 05/08/20 05/08/20 Unknown History amLODIPine 5 mg PO DAILY 05/08/20 05/08/20 Unknown History lisinopriL [Zestril TAB] 20 mg PO DAILY 05/08/20 05/08/20 Unknown History metFORMIN [Glucophage] 500 mg PO BID 05/08/20 05/08/20 Unknown History traZODone [Desyrel] 100 mg PO QHS 05/08/20 05/08/20 Unknown History Melatonin [Melatonin 5MG TAB] 5 mg PO QHS PRN #30 tablet 05/12/20 Unknown Rx Nicotine [Habitrol] 14 mg TD QDAY #30 patch 05/12/20 Unknown Rx haloperidoL [Haldol] 2 mg PO BID #60 tablet 05/12/20 Unknown Rx Ciprofloxacin HCl [Ciprofloxacin 500 mg PO BID 7 Days #14 tab 10/02/20 Unknown Rx TAB] Docusate Sodium [Colace] 100 mg PO BID PRN #14 capsule 10/02/20 Unknown Rx Ketorolac [Toradol] 10 mg PO Q6H PRN #10 tablet 10/02/20 Unknown Rx Polyethylene Glycol 3350 [Miralax] 7 gm PO DAILY #1 powder 10/02/20 Unknown Rx Promethazine [Phenergan] 25 mg PO Q8HR PRN #7 tab 10/02/20 Unknown Rx Acetaminophen [Tylenol] 500 mg PO Q6HR PRN #30 tablet 10/03/20 Unknown Rx Gabapentin 300 mg PO BID #20 cap 10/03/20 Unknown Rx Metoclopramide [Reglan] 10 mg PO TID PRN #15 tab 10/03/20 Unknown Rx methOCARBAMOL [Robaxin TAB] 750 mg PO BID PRN #24 tab 10/03/20 Unknown Rx ED Physical Exam - General Limitations: No Limitations ED Course Vital Signs 10/07/20 19:54 Temperature 98.5 F Pulse Rate 114 H Respiratory 20 Rate Blood Pressure 146/48 O2 Sat by Pulse 96 Oximetry ED Medical Decision Making - Lab Data Result diagrams: 10/07/20 20:36 10/07/20 20:36 Critical care attestation.: If time is entered above; I have spent that time in minutes in the direct care of this critically ill patient, excluding procedure time. ED Disposition Condition: Stable Instructions: Abdominal Pain (ED) Referrals: PRIMARY CARE, [Primary Care Provider] - 3-5 Days
[2020-10-08] MEDS ORDERED: KETOROLAC 30 MG/1 ML INJ IV ONE (11:23)
[2020-10-08] MEDS ORDERED: SODIUM CHLORIDE 0.9% 1000 ML 1,000 ML IV ONE (11:23)
[2020-10-08 11:31] VITALS: BP 154/91
[2020-10-08] MEDS ORDERED: ONDANSETRON 4 MG/2 ML INJ IV ONE (11:42)
[2020-10-08] MEDS ORDERED: MORPHINE 4 MG/1 ML INJ IV ONE (11:42)
--- NOTE | 2020-10-08 11:48 | Emergency Department Report ---
ED Abdominal Pain HPI - General Chief Complaint: Abdominal Pain Stated Complaint: PAINFUL URINATION/ABD PAIN Time Seen by Provider: 10/08/20 11:30 Source: patient Mode of arrival: Ambulatory Limitations: No Limitations - History of Present Illness Initial Comments: Patient is 55 years old female with history of diabetes, COPD and kidney stone. Patient presented to the ER complaining of right flank pain radiated down to her suprapubic area associated with hematuria and dysuria. Patient stated the symptoms started last night. Patient stated that she has been treated for UTI at her current rehab facility. Patient denied any fever or chills. No chest pain or shortness of breath. Patient had a ureteral stent in August 2020 at [facility]. Patient was seen here 7 days ago and had a CT abdomen and pelvis done and showed a stable stent. Patient stated that this time is different and she is having a lot of hematuria. MD Complaint: abdominal pain, flank pain -: Last night Location: suprapubic, R flank Radiation: none Migration to: no migration Severity scale (0 -10): 10 Consistency: constant - Related Data Home Medications Medication Instructions Recorded Confirmed Last Taken Albuterol Sulfate [Proventil Hfa] 1 - 2 puff INHALATION Q6H PRN 05/08/20 05/08/20 Unknown AtorvaSTATin [Lipitor] 40 mg PO DAILY 05/08/20 05/08/20 Unknown Clopidogrel [Plavix] 75 mg PO DAILY 05/08/20 05/08/20 Unknown DULoxetine [Cymbalta] 60 mg PO DAILY 05/08/20 05/08/20 Unknown Furosemide [Lasix TAB] 20 mg pe PO DAILY 05/08/20 05/08/20 Unknown ISOSORBIDE MONOnitrate [Imdur ER] 30 mg PO DAILY 05/08/20 05/08/20 Unknown LORazepam [Lorazepam] 0.5 mg PO BID PRN 05/08/20 05/08/20 Unknown Montelukast Sodium 10 mg PO DAILY 05/08/20 05/08/20 Unknown Omeprazole 20 mg PO DAILY 05/08/20 05/08/20 Unknown amLODIPine 5 mg PO DAILY 05/08/20 05/08/20 Unknown lisinopriL [Zestril TAB] 20 mg PO DAILY 05/08/20 05/08/20 Unknown metFORMIN [Glucophage] 500 mg PO BID 05/08/20 05/08/20 Unknown traZODone [Desyrel] 100 mg PO QHS 05/08/20 05/08/20 Unknown Previous Rx's Medication Instructions Recorded Last Taken Type Melatonin [Melatonin 5MG TAB] 5 mg PO QHS PRN #30 tablet 05/12/20 Unknown Rx Nicotine [Habitrol] 14 mg TD QDAY #30 patch 05/12/20 Unknown Rx haloperidoL [Haldol] 2 mg PO BID #60 tablet 05/12/20 Unknown Rx Ciprofloxacin HCl [Ciprofloxacin 500 mg PO BID 7 Days #14 tab 10/02/20 Unknown Rx TAB] Docusate Sodium [Colace] 100 mg PO BID PRN #14 capsule 10/02/20 Unknown Rx Ketorolac [Toradol] 10 mg PO Q6H PRN #10 tablet 10/02/20 Unknown Rx Polyethylene Glycol 3350 [Miralax] 7 gm PO DAILY #1 powder 10/02/20 Unknown Rx Promethazine [Phenergan] 25 mg PO Q8HR PRN #7 tab 10/02/20 Unknown Rx Acetaminophen [Tylenol] 500 mg PO Q6HR PRN #30 tablet 10/03/20 Unknown Rx Gabapentin 300 mg PO BID #20 cap 10/03/20 Unknown Rx Metoclopramide [Reglan] 10 mg PO TID PRN #15 tab 10/03/20 Unknown Rx methOCARBAMOL [Robaxin TAB] 750 mg PO BID PRN #24 tab 10/03/20 Unknown Rx Allergies Allergy/AdvReac Type Severity Reaction Status Date / Time ampicillin Allergy Itching Verified 05/08/20 02:47 azithromycin Allergy Nausea Verified 05/08/20 02:47 codeine Allergy Itching Verified 05/08/20 02:47 erythromycin base Allergy Vomiting Verified 05/08/20 02:47 latex Allergy Rash Verified 05/08/20 02:47 Penicillins Allergy Vomiting Verified 05/08/20 02:47 hydrocodone AdvReac Unknown Verified 05/08/20 02:47 tramadol AdvReac Unknown Verified 05/08/20 02:47 ED Review of Systems ROS: Stated complaint: PAINFUL URINATION/ABD PAIN Other details as noted in HPI Comment: All other systems reviewed and negative Constitutional: denies: chills, fever Respiratory: denies: cough, shortness of breath, SOB with exertion Cardiovascular: denies: chest pain, palpitations Gastrointestinal: abdominal pain, nausea. denies: vomiting, diarrhea Genitourinary: urgency, dysuria, hematuria Neurological: denies: headache, weakness ED Past Medical Hx - Past Medical History Previous Medical History?: Yes Hx Congestive Heart Failure: Yes Hx Diabetes: Yes Hx Arthritis: Yes Hx Seizures: Yes (8 mths) Hx Kidney Stones: Yes Hx Psychiatric Treatment: Yes (Substance abuse) Hx Asthma: No Hx COPD: Yes - Surgical History Past Surgical History?: Yes Hx Cholecystectomy: Yes Additional Surgical History: renal stent 09/02/20, Left knee - Social History Smoking Status: Current Every Day Smoker Substance Use Type: Alcohol, Other - Medications Home Medications: Home Medications Medication Instructions Recorded Confirmed Last Taken Type Albuterol Sulfate [Proventil Hfa] 1 - 2 puff INHALATION Q6H PRN 05/08/20 05/08/20 Unknown History AtorvaSTATin [Lipitor] 40 mg PO DAILY 05/08/20 05/08/20 Unknown History Clopidogrel [Plavix] 75 mg PO DAILY 05/08/20 05/08/20 Unknown History DULoxetine [Cymbalta] 60 mg PO DAILY 05/08/20 05/08/20 Unknown History Furosemide [Lasix TAB] 20 mg pe PO DAILY 05/08/20 05/08/20 Unknown History ISOSORBIDE MONOnitrate [Imdur ER] 30 mg PO DAILY 05/08/20 05/08/20 Unknown History LORazepam [Lorazepam] 0.5 mg PO BID PRN 05/08/20 05/08/20 Unknown History Montelukast Sodium 10 mg PO DAILY 05/08/20 05/08/20 Unknown History Omeprazole 20 mg PO DAILY 05/08/20 05/08/20 Unknown History amLODIPine 5 mg PO DAILY 05/08/20 05/08/20 Unknown History lisinopriL [Zestril TAB] 20 mg PO DAILY 05/08/20 05/08/20 Unknown History metFORMIN [Glucophage] 500 mg PO BID 05/08/20 05/08/20 Unknown History traZODone [Desyrel] 100 mg PO QHS 05/08/20 05/08/20 Unknown History Melatonin [Melatonin 5MG TAB] 5 mg PO QHS PRN #30 tablet 05/12/20 Unknown Rx Nicotine [Habitrol] 14 mg TD QDAY #30 patch 05/12/20 Unknown Rx haloperidoL [Haldol] 2 mg PO BID #60 tablet 05/12/20 Unknown Rx Ciprofloxacin HCl [Ciprofloxacin 500 mg PO BID 7 Days #14 tab 10/02/20 Unknown Rx TAB] Docusate Sodium [Colace] 100 mg PO BID PRN #14 capsule 10/02/20 Unknown Rx Ketorolac [Toradol] 10 mg PO Q6H PRN #10 tablet 10/02/20 Unknown Rx Polyethylene Glycol 3350 [Miralax] 7 gm PO DAILY #1 powder 10/02/20 Unknown Rx Promethazine [Phenergan] 25 mg PO Q8HR PRN #7 tab 10/02/20 Unknown Rx Acetaminophen [Tylenol] 500 mg PO Q6HR PRN #30 tablet 10/03/20 Unknown Rx Gabapentin 300 mg PO BID #20 cap 10/03/20 Unknown Rx Metoclopramide [Reglan] 10 mg PO TID PRN #15 tab 10/03/20 Unknown Rx methOCARBAMOL [Robaxin TAB] 750 mg PO BID PRN #24 tab 10/03/20 Unknown Rx ED Physical Exam - General Limitations: No Limitations General appearance: alert, in distress - Head Head exam: Present: atraumatic, normocephalic, normal inspection - Eye Eye exam: Present: normal appearance, PERRL - ENT ENT exam: Present: normal exam - Neck Neck exam: Present: normal inspection, full ROM. Absent: tenderness, meningismus, lymphadenopathy, thyromegaly - Respiratory Respiratory exam: Present: normal lung sounds bilaterally - Cardiovascular Cardiovascular Exam: Present: tachycardia - GI/Abdominal GI/Abdominal exam: Present: soft, normal bowel sounds. Absent: distended, tenderness, guarding, rebound, rigid, mass, bruit, pulsatile mass, hernia - Extremities Exam Extremities exam: Present: normal inspection, full ROM, normal capillary refill. Absent: pedal edema, calf tenderness - Back Exam Back exam: Present: CVA tenderness (R) - Neurological Exam Neurological exam: Present: alert, oriented X3, CN II-XII intact - Psychiatric Psychiatric exam: Present: normal mood - Skin Skin exam: Present: warm, intact, normal color ED Course Vital Signs 10/07/20 10/08/20 10/08/20 19:54 11:30 12:12 Temperature 98.5 F Pulse Rate 114 H 111 H Respiratory 20 20 Rate Blood Pressure 146/48 Blood Pressure 154/91 [Right] O2 Sat by Pulse 96 Oximetry ED Medical Decision Making - Lab Data Result diagrams: 10/07/20 20:36 10/07/20 20:36 - Radiology Data Radiology results: report reviewed - Medical Decision Making Patient is 55 years old female with history of diabetes, COPD and kidney stone. Patient presented to the ER complaining of right flank pain radiated down to her suprapubic area associated with hematuria and dysuria. Patient stated the symptoms started last night. Patient stated that she has been treated for UTI at her current rehab facility. Patient denied any fever or chills. No chest pain or shortness of breath. Patient had a ureteral stent in August 2020 at [facility]. Patient was seen here 7 days ago and had a CT abdomen and pelvis done and showed a stable stent. Patient stated that this time is different and she is having a lot of hematuria. Labs reviewed and is unremarkable except for WBC and RBC in the urine indicating possible infection. Patient be treated with Levaquin 500 mg daily for 7 days. Patient received morphine, Zofran and normal saline in the ER and stated that she is feeling much better. CT abdomen and pelvis showed no change from the previous CT scan. Patient advised to follow-up with her urologist in the next 2 to 3 days and to return to the ER if she develop any new symptoms. Critical care attestation.: If time is entered above; I have spent that time in minutes in the direct care of this critically ill patient, excluding procedure time. ED Disposition Clinical Impression: Abdominal pain, UTI (urinary tract infection) Disposition: -01 TO HOME OR SELFCARE Is pt being admited?: No Condition: Stable Instructions: Abdominal Pain (ED), Flank Pain, Adult, [id number] Referrals: PRIMARY CARE, [Primary Care Provider] - 3-5 Days
--- NOTE | 2020-10-08 14:19 | Cat Scan Report ---
CT ABDOMEN AND PELVIS WITHOUT CONTRAST INDICATION / CLINICAL INFORMATION: Back pain, gross hematuria. TECHNIQUE: Axial CT images were obtained through the abdomen and pelvis without IV contrast. All CT scans at this location are performed using CT dose reduction for ALARA by means of automated exposure control. COMPARISON: CT dated 10/03/2020 and 10/02/2020 FINDINGS: LOWER CHEST: No significant abnormality. LIVER: No significant abnormality. GALLBLADDER: Cholecystectomy. BILE DUCTS: No significant abnormality. PANCREAS: No significant abnormality. SPLEEN: No significant abnormality. ADRENALS: No significant abnormality. RIGHT KIDNEY / URETER: No significant abnormality. LEFT KIDNEY / URETER: Left ureteral stent is unchanged. No hydronephrosis. STOMACH / SMALL BOWEL: Small hiatal hernia is unchanged. No small bowel abnormality. COLON: Diverticulosis without inflammation. APPENDIX: No significant abnormality. PERITONEUM: No free fluid. No free air. No fluid collection. LYMPH NODES: No significant adenopathy. AORTA / ARTERIES: Distal thoracic aorta stent graft appears unchanged. No acute abnormality. IVC / VEINS: No significant abnormality. URINARY BLADDER: No stones or other acute abnormality. REPRODUCTIVE ORGANS: No significant abnormality. ADDITIONAL FINDINGS: None. SKELETAL SYSTEM: No significant abnormality. IMPRESSION: 1. No change in appearance or positioning of left ureteral stent. No hydronephrosis. 2. No acute findings. No change. Signer Name: Chirag Stanford MD Signed: 10/08/2020 2:15 PM Workstation Name: [id number]
== END 2020-10-08 14:42 | disposition home or self-care (01) ==
LOC: ED 19:43
DX: N39.0 Urinary tract infection, site not specified (principal); R10.2 Pelvic and perineal pain; I50.9 Heart failure, unspecified; E11.9 Type 2 diabetes mellitus without complications; M19.91 Primary osteoarthritis, unspecified site; R56.9 Unspecified convulsions; J44.9 Chronic obstructive pulmonary disease, unspecified; F17.200 Nicotine dependence, unspecified, uncomplicated; Z79.2 Long term (current) use of antibiotics; Z79.899 Other long term (current) drug therapy; Z91.040 Latex allergy status; Z88.8 Allergy status to other drugs, medicaments and biological substances
CPT/HCPCS: 36415; 74176; 80053; 81001; 85025; 87086; 96361; 96374; 96375; 99284; J2270; J2405; J7030; J1885